=== PATIENT | male | born 1990 | race Two or more races ===

== ENCOUNTER → 2020-10-09 | Day surgery (SDC) | payer OTHER ==
[~2020-10-09] VITALS: Ht 182.9 cm; Wt 108.0 kg
[~2020-10-09] MED LIST: AMLO-187 PO; CALC200T3 PO; CETI10TA74 PO; HYDROmorphone 2 MG/ML VIAL IVP PRN; IV RINGERS,LACTATED 1000ML 1,000 ML IV SCH; LIDOCAINE 2% PF 5 ML VIAL. ONE; MORPHINE SULFATE 2 MG/ML INJ. IVP PRN; OMEP40CA7 PO; PROCHLORPERAZINE 10 MG/2 ML VIAL. IVP PRN; PROPOFOL 10 MG/ML (20ML) VIAL. IV ONE; fentaNYL PF VIAL 100 MCG/2 ML VIAL IVP PRN
[2020-10-09 06:17] VITALS: BP 144/88
[2020-10-09 07:42] VITALS: BP 119/61
--- NOTE | 2020-10-09 09:32 | CONS ---
DATE OF CONSULTATION: 10/09/2020 GASTROINTESTINAL CONSULTATION REASON FOR CONSULTATION: Dysphagia and GERD. HISTORY OF PRESENT ILLNESS: A 30-year-old -[place] male whose past medical history is significant for hypertension and chronic gastroesophageal reflux disease, is seen for intermittent dysphagia in cervical location. The patient states that he has difficulties with solids, but not with liquids. Risk factors for reflux are positive for caffeine, but negative for nicotine and alcohol at this time. Weight and appetite are stable. With continued issues and intermittent impactions, he requests additional evaluation. PAST MEDICAL HISTORY: Hypertension, gastroesophageal reflux disease. ALLERGIES: None. MEDICATIONS: Include amlodipine, calcium, cerasine, and omeprazole. FAMILY AND SOCIAL HISTORY: He is incarcerated. He does not drink or smoke at this time. He has had previous neck and leg surgery. REVIEW OF SYSTEMS: Per records. PHYSICAL EXAMINATION: GENERAL: Reveals a well-nourished, well-developed male who is alert, cooperative, in no acute distress. VITAL SIGNS: Temperature is 97.6, pulse ____, respiratory rate 18, pulse ox is 98%. HEENT: Reveals normocephalic, atraumatic head. Pupils and extraocular muscles are not tested. Sclerae are anicteric. NECK: Supple. LUNGS: Clear. CARDIOVASCULAR: Reveals S1, S2, without S3, S4 or appreciable murmur. ABDOMEN: With a soft abdomen, normal bowel sounds, without appreciable hepatosplenomegaly. EXTREMITIES: Reveals no cyanosis, clubbing or edema. IMPRESSION AND PLAN: Dysphagia with reflux. Differential includes Easton's, malignancy, achalasia, eosinophilic esophagitis, Schatzki's ring and/or peptic stricture. Risks and benefits of procedure including risk of and perforation were discussed with the patient and is willing to proceed at this time. STEVIE/ZACK/JESSICA DR: Michael TID: [id number]
--- NOTE | 2020-10-12 15:23 | PATHOLOGY ---
[facility] Accession Number: [id number] . 01 Material submitted: . esophagus - DISTAL ESOPHAGUS BIOPSY. Modifiers: distal . 01 Clinical history: . DYSPHAGIA, CLEARS THROAT, EGD . 02 Diagnosis: Esophageal biopsies, distal esophagus: - Reflux esophagitis. (JPM:lizzeth; 10/12/2020) [facility] 10/12/2020 1158 Local . 02 Comment: Sections of the distal esophageal biopsy reveal segments of focally tangentially oriented hyperplastic squamous esophageal mucosa. The findings are consistent with reflux esophagitis. There is no evidence of Easton's change, dysplasia or malignancy. (JPM:lizzeth; 10/12/2020) . 02 Electronically signed: . Mumtaz Colon MD, Pathologist NPI- [id number] . 01 Gross description: . The specimen is received in formalin, labeled "Blanco, Montrez and distal esophagus BX". It consists of multiple white irregular soft tissue fragments measuring 1.0 x 0.5 x 0.2 cm in aggregate. The specimen [place] entirely [place] [facility] [place] (MRF; 10/09/2020) [facility] 10/09/20202036 Local . 02 Pathologist provided ICD-10: K21.00 . 02 CPT . 999125 Specimen Comment: A courtesy copy of this report has been sent to [phone], [phone] Specimen Comment: [id number] Specimen Comment: Report sent to / DR MARIE Performed at: [address] [facility] [address], [place], [place] [id number] MD Tello Hand MD Phone: [phone] Performed at: 02 [facility] [address], [place] [id number] MD Mumtaz Colon MD Phone: [phone]
== END | disposition home or self-care (01) ==
LOC: ENDOS 06:02 → EEVIPCON 07:00
PROVIDERS: ATTEND Internal Medicine Gastroenterology
DX: R13.10 Dysphagia, unspecified (principal); R12 Heartburn; K21.00 Gastro-esophageal reflux disease with esophagitis, without bleeding; K31.89 Other diseases of stomach and duodenum; I10 Essential (primary) hypertension; F41.9 Anxiety disorder, unspecified; Z87.891 Personal history of nicotine dependence; Z79.899 Other long term (current) drug therapy; Z98.890 Other specified postprocedural states; Z20.822 Contact with and (suspected) exposure to COVID-19
CPT/HCPCS: 43239; 43450; 87426; J2704; 88305